=== PATIENT | male | born 1965 | race Two or more races ===

== ENCOUNTER → 2018-10-07 | Outpatient (CLI) | payer OTHER ==
[~2018-10-07] MED LIST: ACET-1757 PO; ASPI-496 PO; CHOL200024 PO; HYDR-3237 PO; IBUP-1840 PO; LISI-170 PO; OMEP-110 PO; PSYL0.5215 PO; TEST100V2 INJ; TRAM50TA2 PO
[2018-10-07 14:18] LABS: BASOPHILS # (AUTO) 0.04 x10^3/uL (0-0.1); BASOPHILS % (AUTO) 1 % (0-1); EOSINOPHILS # (AUTO) 0.04 x10^3/uL (0-0.4); EOSINOPHILS % (AUTO) 1 % (1-7); LYMPHOCYTES # (AUTO) 1.79 x10^3/uL (1-3.4); LYMPHOCYTES % (AUTO) 21 % (22-44); MD NO; MEAN CORPUSCULAR HEMOGLOBIN 31.7 pg (27.5-34.5); MEAN CORPUSCULAR HGB CONC 33.3 g/dL (33.2-36.2); MEAN CORPUSCULAR VOLUME 95.1 fL (81-97); MEAN PLATELET VOLUME 9.1 fL (7.4-10.4); MONOCYTES # (AUTO) 0.82 x10^3/uL (0.2-0.8); MONOCYTES % (AUTO) 10 % (2-9); NEUTROPHILS # (AUTO) 5.93 x10^3/uL (1.8-6.8); NEUTROPHILS % (AUTO) 69 % (42-75); PLATELET COUNT 192 x10^3/uL (130-400); RED CELL DISTRIBUTION WIDTH 13.7 % (9.4-14.8)
[2018-10-07 14:22] LABS: MICROSCOPIC NOT IND
[2018-10-07 14:23] LABS: INTERNATIONAL NORMALIZED RATIO 1.02 (0.93-1.1); PROTHROMBIN TIME 10.7 Seconds (9.6-11.5)
[2018-10-07 14:23] LABS: CULTURE INDICATED? NO
[2018-10-07 14:25] LABS: ALANINE AMINOTRANSFERASE 120 U/L (12-78); ALBUMIN 4.5 g/dL (3.4-5.0); ANION GAP 10 mmol/L (5-15); CALCIUM 9.8 mg/dL (8.5-10.1); CHLORIDE 104 mmol/L (98-107); CREATININE 1.13 mg/dL (0.7-1.3)
[2018-10-07 14:27] LABS: ALKALINE PHOSPHATASE 87 U/L (45-117); BILIRUBIN,TOTAL 1.1 mg/dL (0.2-1.0)
== END | disposition home or self-care (01) ==
LOC: STAR 13:05
PROVIDERS: ATTEND Neurological Surgery
DX: Z01.818 Encounter for other preprocedural examination (principal); M48.062 Spinal stenosis, lumbar region with neurogenic claudication
CPT/HCPCS: 36415; 71046; 80053; 81003; 85025; 85610; 85730; 93005

== ENCOUNTER 2018-10-14 10:30 | Inpatient (IN) | payer OTHER ==
[~2018-10-14] VITALS: Ht 177.8 cm; Wt 102.0 kg
[~2018-10-14 10:30] MED LIST changes: +BACITRACIN 50,000 UNIT ONE; +BUPIVACAINE/EPI 0.5% 1:200K ONE; +VANCOMYCIN 1,000 MG ONE
[2018-10-14] MEDS ORDERED: HYDROmorphone 2 MG/ML, 1ML IVPush PRN (12:00)
[2018-10-14] MEDS ORDERED: hydrALAzine 20 MG/ML, 1ML IV PRN (12:00)
[2018-10-14] MEDS ORDERED: LABETALOL 5MG/ML, 20ML IV PRN ×2 (12:00→21:00)
[2018-10-14] MEDS ORDERED: MEPERIDINE/PF 25MG/0.5ML IVPush PRN (12:00)
[2018-10-14] MEDS ORDERED: DIAZEPAM 5 MG/ML, 2ML IVPush PRN (12:00)
[2018-10-14] MEDS ORDERED: ONDANSETRON 2MG/ML, 2ML IV PRN ×2 (12:00→21:00)
[2018-10-14] MEDS ORDERED: OXYcodone 5 MG/5 ML ORAL.SOL UDC PO PRN (12:00)
[2018-10-14] MEDS ORDERED: PROMETHAZINE 25 MG/ML, 1ML IV PRN (12:00)
[2018-10-14] MEDS ORDERED: VANCOMYCIN 1,000 MG ONE (12:36)
[2018-10-14 12:45] VITALS: BP 143/96
[2018-10-14] MEDS ORDERED: LACTATED RINGERS 1,000 ML IV SCH (12:50)
[2018-10-14] MEDS ORDERED: OxyconTIN ER 20 MG TAB.ER PO ONE (13:00)
[2018-10-14] MEDS ORDERED: ACETAMINOPHEN 500 MG TABLET PO ONE (13:00)
[2018-10-14] MEDS ORDERED: GABAPENTIN 300 MG CAPSULE PO ONE (13:00)
[2018-10-14] MEDS ORDERED: FAMOTIDINE 20 MG TABLET PO ONE (13:00)
[2018-10-14] MEDS ORDERED: PROPOFOL 100 ML ONE (13:26)
[2018-10-14] MEDS ORDERED: FENTANYL PF 250 MCG/5ML ONE ×2 (13:27→17:36)
[2018-10-14] MEDS ORDERED: MIDAZOLAM 1 MG/ML, 2ML ONE (13:27)
[2018-10-14] MEDS ORDERED: CEFAZOLIN 1,000 MG ONE ×2 (14:34)
[2018-10-14] MEDS ORDERED: METOPROLOL 1 MG/ML, 5ML ONE (17:42)
[2018-10-14] MEDS ORDERED: SUCCINYLCHOLINE 20 MG/ML, 10ML ONE (17:42)
[2018-10-14] MEDS ORDERED: PROPOFOL 10 MG/ML, 20ML ONE (17:42)
[2018-10-14] MEDS ORDERED: DEXAMETHASONE 4 MG/ML, 1ML ONE ×2 (17:43)
[2018-10-14] MEDS ORDERED: ONDANSETRON 2MG/ML, 2ML ONE (17:43)
[2018-10-14] MEDS ORDERED: MEPERIDINE/PF 25MG/ML,1ML ONE (18:33)
[2018-10-14] MEDS ORDERED: OXYcodone 5 MG/5 ML ORAL.SOL UDC ONE (18:33)
[2018-10-14] MEDS ORDERED: FENTANYL PF 100 MCG/2ML ONE (18:33)
[2018-10-14] MEDS: FENTANYL PF 100 MCG/2ML IV PRN ×2 (18:49→19:19)
[2018-10-14] MEDS ORDERED: METHOCARBAMOL 750 MG TABLET ONE (19:09)
[2018-10-14] MEDS: METHOCARBAMOL 750 MG TABLET PO PRN (19:12)
[2018-10-14] MEDS ORDERED: METHOCARBAMOL 750 MG in DEXTROSE 5% 100 ML IV SCH (19:30)
[2018-10-14] MEDS ORDERED: PHARMACY MAY ADJ FOR RENAL FX MC PRN (21:00)
[2018-10-14] MEDS ORDERED: BISACODYL 10 MG SUPP PR PRN (21:00)
[2018-10-14] MEDS ORDERED: MAGNESIUM HYDROXIDE 8%, 30ML UDC PO PRN (21:00)
[2018-10-14] MEDS ORDERED: METHOCARBAMOL 750 MG TABLET PO PRN (21:00)
[2018-10-14] MEDS ORDERED: DIPHENHYDRAMINE 50 MG/ML, 1ML IVPush PRN (21:00)
[2018-10-14] MEDS ORDERED: morphine SULFATE 10 MG/ML, 1ML IV PRN (21:00)
[2018-10-14] MEDS ORDERED: ZOLPIDEM 5MG TABLET PO PRN (21:00)
[2018-10-14] MEDS: D5%-0.9% NACL+KCL 20MEQ 1,000 ML IV SCH (21:18)
[2018-10-14] MEDS: ENOXAPARIN 30 MG/0.3 ML SQ SCH (21:58)
[2018-10-14] MEDS: CEFAZOLIN PMX 1GM/50ML 50 ML IVPB SCH (22:08)
[2018-10-14] MEDS: HYDROcodone/APAP 5/325 TABLET PO PRN (23:07)
[2018-10-14 23:39] VITALS: BP 136/98
[2018-10-15] MEDS: METHOCARBAMOL 750 MG TABLET PO PRN ×3 (02:56→21:52)
[2018-10-15] MEDS: HYDROcodone/APAP 5/325 TABLET PO PRN ×2 (02:56→08:09)
[2018-10-15 03:38] VITALS: BP 129/84
[2018-10-15 04:42] LABS: BASOPHILS # (AUTO) 0.04 x10^3/uL (0-0.1); BASOPHILS % (AUTO) 0 % (0-1); EOSINOPHILS % (AUTO) 0 % (1-7); LYMPHOCYTES # (AUTO) 0.81 x10^3/uL (1-3.4); LYMPHOCYTES % (AUTO) 6 % (22-44); MD NO; MEAN CORPUSCULAR HEMOGLOBIN 32.3 pg (27.5-34.5); MEAN CORPUSCULAR HGB CONC 33.8 g/dL (33.2-36.2); MEAN CORPUSCULAR VOLUME 95.7 fL (81-97); MEAN PLATELET VOLUME 8.9 fL (7.4-10.4); MONOCYTES # (AUTO) 0.88 x10^3/uL (0.2-0.8); MONOCYTES % (AUTO) 7 % (2-9); NEUTROPHILS # (AUTO) 11.02 x10^3/uL (1.8-6.8); NEUTROPHILS % (AUTO) 86 % (42-75); PLATELET COUNT 162 x10^3/uL (130-400); RED BLOOD COUNT 4.35 x10^6/uL (4.38-5.82); RED CELL DISTRIBUTION WIDTH 13.3 % (9.4-14.8)
[2018-10-15 04:48] LABS: ALBUMIN 3.1 g/dL (3.4-5.0); ANION GAP 6 mmol/L (5-15); CHLORIDE 104 mmol/L (98-107); CREATININE 1.06 mg/dL (0.7-1.3)
[2018-10-15] MEDS: CEFAZOLIN PMX 1GM/50ML 50 ML IVPB SCH (05:55)
[2018-10-15] MEDS: OMEPRAZOLE 20 MG CAPSULE.DR PO SCH (06:12)
[2018-10-15] MEDS: D5%-0.9% NACL+KCL 20MEQ 1,000 ML IV SCH ×2 (07:00→17:00)
[2018-10-15 08:04] VITALS: BP 127/82
[2018-10-15] MEDS: CHOLECALCIFEROL 1,000 UNIT TABLET PO SCH (08:09)
[2018-10-15] MEDS: ENOXAPARIN 30 MG/0.3 ML SQ SCH ×2 (08:09→20:50)
[2018-10-15] MEDS: PSYLLIUM PACKET PO SCH (08:10)
[2018-10-15] MEDS: SENNA/DOCUSATE TABLET PO SCH (08:10)
[2018-10-15] MEDS: LISINOPRIL 20 MG TABLET PO SCH (08:10)
[2018-10-15] MEDS: HYDROcodone/APAP 10/325 MG TABLET PO PRN ×3 (12:31→22:36)
[2018-10-15 13:52] VITALS: BP 119/67
[2018-10-15 19:06] VITALS: BP 143/87
[2018-10-15 19:12] VITALS: BP 116/77
[2018-10-16 02:30] VITALS: BP 115/80
[2018-10-16] MEDS: HYDROcodone/APAP 10/325 MG TABLET PO PRN ×3 (02:53→12:58)
[2018-10-16] MEDS: D5%-0.9% NACL+KCL 20MEQ 1,000 ML IV SCH ×2 (03:00→13:01)
[2018-10-16 05:30] LABS: BASOPHILS # (AUTO) 0.04 x10^3/uL (0-0.1); BASOPHILS % (AUTO) 0 % (0-1); EOSINOPHILS # (AUTO) 0.02 x10^3/uL (0-0.4); EOSINOPHILS % (AUTO) 0 % (1-7); LYMPHOCYTES # (AUTO) 1.24 x10^3/uL (1-3.4); LYMPHOCYTES % (AUTO) 12 % (22-44); MD NO; MEAN CORPUSCULAR HEMOGLOBIN 32.4 pg (27.5-34.5); MEAN CORPUSCULAR HGB CONC 33.5 g/dL (33.2-36.2); MEAN CORPUSCULAR VOLUME 96.7 fL (81-97); MONOCYTES # (AUTO) 1.02 x10^3/uL (0.2-0.8); MONOCYTES % (AUTO) 10 % (2-9); NEUTROPHILS # (AUTO) 8.31 x10^3/uL (1.8-6.8); NEUTROPHILS % (AUTO) 78 % (42-75); PLATELET COUNT 156 x10^3/uL (130-400); RED BLOOD COUNT 4.21 x10^6/uL (4.38-5.82); RED CELL DISTRIBUTION WIDTH 13.5 % (9.4-14.8)
[2018-10-16] MEDS: OMEPRAZOLE 20 MG CAPSULE.DR PO SCH (05:44)
[2018-10-16] MEDS: METHOCARBAMOL 750 MG TABLET PO PRN ×2 (05:55→12:58)
[2018-10-16 06:49] VITALS: BP 121/82
[2018-10-16] MEDS: SENNA/DOCUSATE TABLET PO SCH (09:09)
[2018-10-16] MEDS: CHOLECALCIFEROL 1,000 UNIT TABLET PO SCH (09:09)
[2018-10-16] MEDS: LISINOPRIL 20 MG TABLET PO SCH (09:10)
[2018-10-16] MEDS: ENOXAPARIN 30 MG/0.3 ML SQ SCH (09:10)
[2018-10-16] MEDS: PSYLLIUM PACKET PO SCH (09:10)
[2018-10-16] MEDS ORDERED: HYDR-36 PO (10:23)
[2018-10-16] MEDS ORDERED: METH750T87 PO (10:24)
[2018-10-16 13:09] VITALS: BP 126/75
[2018-10-16 15:30] VITALS: BP 128/87
== END 2018-10-16 16:00 | disposition home or self-care (01) | DRG 454 ==
LOC: ORIP 12:09 → 4NOR 19:55 → DCLOUNGE 10-16 15:51
PROVIDERS: ADMIT Neurological Surgery; ATTEND Neurological Surgery
PROC: 01NB0ZZ Release Lumbar Nerve, Open Approach (ICD-10-PCS; 2018-10-14)
PROC: 0ST20ZZ Resection of Lumbar Vertebral Disc, Open Approach (ICD-10-PCS; 2018-10-14)
PROC: 00UT0KZ Supplement Spinal Meninges with Nonautologous Tissue Substitute, Open Approach (ICD-10-PCS; 2018-10-14)
PROC: 4A11X4G Monitoring of Peripheral Nervous Electrical Activity, Intraoperative, External Approach (ICD-10-PCS; 2018-10-14)
PROC: 0SG10AJ Fusion of 2 or more Lumbar Vertebral Joints with Interbody Fusion Device, Posterior Approach, Anterior Column, Open Approach (ICD-10-PCS; 2018-10-14)
PROC: 0SG1071 Fusion of 2 or more Lumbar Vertebral Joints with Autologous Tissue Substitute, Posterior Approach, Posterior Column, Open Approach (ICD-10-PCS; principal; 2018-10-14 14:30)
DX: M48.061 Spinal stenosis, lumbar region without neurogenic claudication (principal); G97.41 Accidental puncture or laceration of dura during a procedure; G96.0 Cerebrospinal fluid leak; G97.82 Other postprocedural complications and disorders of nervous system; Y83.4 Other reconstructive surgery as the cause of abnormal reaction of the patient, or of later complication, without mention of misadventure at the time of the procedure; Y79.3 Surgical instruments, materials and orthopedic devices (including sutures) associated with adverse incidents; Y92.234 Operating room of hospital as the place of occurrence of the external cause; M47.9 Spondylosis, unspecified; M43.16 Spondylolisthesis, lumbar region; M40.50 Lordosis, unspecified, site unspecified; M54.16 Radiculopathy, lumbar region; I10 Essential (primary) hypertension; M19.90 Unspecified osteoarthritis, unspecified site
CPT/HCPCS: 36415; 72100; 80048; 82040; 85025; 86803; 86850; 86900; 87340; 87806; C1713; C1776; G0378; J0690; J1100; J1650; J2175; J2250; J2405; J2704; J3010; J3370; C1763; C1781; G0475; J0330; J1200; J3480; J7120